=== PATIENT | male | born 1985 | race Two or more races ===

== ENCOUNTER → 2017-08-05 | Outpatient (CLI) | payer OTHER ==
--- NOTE | 2017-08-05 11:28 | KCIC ---
MR of the right knee Indication: Patient fell one month ago. Swelling. Femur fracture and the fall. Pain. Effusion. Technique: The standard multiplanar sequences are obtained. Findings: Medial meniscus:Intact. Lateral meniscus: Intact. Anterior cruciate ligament: Intact Posterior cruciate ligament: Intact Medial collateral ligament: Intact. Iliotibial band: Intact. Posterolateral structures: Fibular collateral ligament, biceps tendon and popliteus tendon are intact. Extensor mechanism: Intact. Fluid: Small joint effusion. Very small Bazan's cyst. Articular cartilage -patellofemoral joint: Mild chondromalacia of the patella. -medial compartment:Intact -lateral compartment:Intact Bones: Artifact at the distal femur from intramedullary nail and cross locking screw. There is some irregular marrow edema type signal in the distal femur around the nail, compatible with postsurgical edema, or posttraumatic marrow contusions and trabecular microfractures. No gross macro fracture is seen. No aggressive bone destruction. Soft tissue: Soft tissue edema within the fat surrounding the femur, greatest anteriorly. Impression: 1. No evidence of meniscal tear or internal derangement. 2. Soft tissue edema or contusion surrounding the femur. 3. Marrow contusion or posttraumatic microfracturing of the distal femur, with intramedullary nail placement. Electronically signed by: Jose Crawford MD (08/05/2017 11:25 AM) [id number]
== END | disposition home or self-care (01) ==
LOC: KCIC MRI 10:21
PROVIDERS: ATTEND Orthopaedic Surgery
DX: S72.91XD Unspecified fracture of right femur, subsequent encounter for closed fracture with routine healing (principal); X58.XXXD Exposure to other specified factors, subsequent encounter
CPT/HCPCS: 73721